=== PATIENT | male | born 1945 | race Caucasian/White ===

== ENCOUNTER 2021-05-28 22:03 | Emergency (ER) | payer MEDICARE, SELFPAY ==
[2021-05-28 22:04] VITALS: BP 115/60; PULSE 63; RESP 15; TEMP 36.4; O2SAT 97; BMI 25.1
--- NOTE | 2021-05-28 22:17 | EDS_ITS ---
HPI History of Present Illness Chief Complaint: Lower Extremity Injury Informant: patient Narrative Narrative: Patient is a 76 year male presenting with intermittent left thigh pain. It has been present for the past 2-3 days. Notes that it is intermittent and shooting. Worse when either sitting or laying. It is over the medial aspect of his thigh. Denies any recent medication changes. Denies any overlying rash or leg swelling. Denies history of DVT or PE. Is not any blood thinners. Did drive to and from [place] last month. Denies any shortness of breath or difficulty breathing. Denies associated back or leg pain. No numbness or tingling. No other complaints at this time. Denies any falls or injuries. [facility] Medical History Heart disease Home Medications aspirin 81 mg tablet,delayed release 81 mg PO DAILY 02/16/21 [History Last Taken Unknown] atorvastatin 80 mg tablet 80 mg PO DAILY 02/16/21 [History Last Taken Unknown] carvedilol 6.25 mg tablet 6.25 mg PO BID 02/16/21 [History Last Taken Unknown] cetirizine 10 mg capsule 10 mg PO DAILY 02/16/21 [History Last Taken Unknown] lansoprazole 30 mg capsule,delayed release 30 mg PO DAILY 02/16/21 [History Last Taken Unknown] sacubitril 97 mg-valsartan 103 mg tablet 1 tab PO BID 02/16/21 [History Last Valeriy en Unknown] sertraline 50 mg tablet 50 mg PO DAILY 02/16/21 [History Last Taken Unknown] spironolactone 25 mg tablet 25 mg PO DAILY 02/16/21 [History Last Taken Unknown] methylprednisolone [Medrol (Serafin)] 4 mg PO DAILY #21 tab 05/28/21 [Rx Last Taken Unknown] Allergy/AdvReac Type Severity Reaction Status Date / Time No Known Allergies Allergy Verified 05/28/21 22:04 Surgical History H/O heart bypass surgery Social History Smoking Status: Never smoker ROS ROS ED Constitutional Constitutional ED: Denies fever(s) or subjective ENT ENT ED: Denies rhinorrhea or sore throat Cardiovascular Cardiovascular: Denies chest pain, orthopnea or palpitations Respiratory/Chest Respiratory/Chest: Denies cough, dyspnea, dyspnea on exertion or orthopnea Gastrointestinal Gastrointestinal: Denies abdominal pain Genitourinary Genitourinary ED: Denies dysuria, hematuria or urinary frequency Musculoskeletal Musculoskeletal: Reports other Details: left thigh pain ; Denies arthralgias or myalgias Integumentary Denies Abrasions or rash Neurologic Neurologic: Denies headache(s), paresthesias or weakness Psychiatric Psychiatric: Denies anxiety or depression EXAM Physical Exam Const Vital Signs: 05/28/21 22:04 05/28/21 23:40 Temperature 97.6 F L Temperature Source Temporal Pulse Rate 63 Respiratory Rate 15 18 Blood Pressure 115/60 Blood Pressure Mean 78 Pulse Ox 97 Oxygen Delivery Method Room Air Positive well nourished and well developed General Appearance ED: well developed and NAD HEENT normocephalic and atraumatic Eyes PERRL Neck full ROM and supple Neck Narrative: No JVD Chest Wall inspection of chest normal Resp normal respiratory effort and clear to auscultation bilaterally Cardio regular rate, regular rhythm and no murmurs GI non-tender, non-distended and no masses Palpation: soft; Negative for guarding Back/Spine no CVA tenderness Lumbar Spine / Lower Back: straight leg raise negative bilaterally Extremity normal to inspection and full ROM Extremity Narrative: Normal range of motion of the left hip with logroll and full range of motion. Able to raise leg off the bed without any difficulty. 2+ popliteal and DP pulses on the right No palpable cords General Extremety ED: Negative for edema or weight-bearing difficulty General Extremity: Negative for edema or weight-bearing difficulty Neuro oriented x3, moves all extremities and no sensory deficits noted Sensorium / Orientation: alert Motor Exam: strength 5/5 throughout; Negative for general weakness Psych mental status grossly normal Skin Lesions: no lesions Rashes: no rashes MDM MDM MDM Narrative Medical decision making narrative: Patient evaluated for atraumatic left leg pain. Seems to be zings or shocks of pain in his medial left thigh. I suspect this is likely neuropathic pain. No overlying rash consistent with shingles. Patient is not had any trauma or injury concerning for fracture. I did obtain a venous duplex as patient recently drove to and from [place] to rule out DVT. This was negative for any acute DVT. Patient has normal strength and sensation in all dermatomes and equal distal pulses. Do not suspect any arterial occl usion. Patient will be started on a Medrol Dosepak as I suspect this is more of a radicular pain. He is agreeable with this. He is encouraged to follow-up with his primary care doctor. Patient is counseled on signs and symptoms requiring return to the emergency room. Patient verbalizes agreement and understand this plan. Patient discharged home in stable and improved condition. Radiography Diagnostic Testing: Clinical Impression(s) from Imaging Studies Venous Duplex 05/28/21 22:17 IMPRESSION: Normal left lower extremity duplex venous ultrasound. Electronically Signed: Amador Youngblood MD at 22:57 EDT , Discharge Plan Triage Chief Complaint: Lower Extremity Injury ED Provider: Britni Whittington Dx/Rx/DC Orders Clinical Impression: Acute pain of left thigh, Neuralgia of left thigh Instructions: Understanding Lumbar Radiculopathy Prescriptions: New methylprednisolone [Medrol (Serafin)] 4 mg tablets,dose pack 4 mg PO DAILY Qty: 21 RF: 0 No Action aspirin [Adult Aspirin Regimen] 81 mg tablet,delayed release (DR/EC) 81 mg PO DAILY RF: 0 atorvastatin 80 mg tablet 80 mg PO DAILY RF: 0 carvedilol [Coreg] 6.25 mg tablet 6.25 mg PO BID RF: 0 Zyrtec 10 mg capsule 10 mg PO DAILY RF: 0 lansoprazole 30 mg capsule,delayed release(DR/EC) 30 mg PO DAILY RF: 0 Entresto 97-103 mg tablet 1 tab PO BID RF: 0 sertraline 50 mg tablet 50 mg PO DAILY RF: 0 spironolactone 25 mg tablet 25 mg PO DAILY RF: 0 Primary Care Provider: Lopez Graham Referrals: Lopez Graham MD [Primary Care Provider] - Activity Restrictions/Additional Instructions: I suspect you have a nerve somewhere in your back or anterior leg that is been intermittently compressed and that is causing your pain. Please follow-up with your primary care doctor for further evaluation of this. You had a venous duplex scan that was negative for DVT today. Disposition Disposition: Home, Self Care Discharge Date/Time: 05/28/21 23:41
--- NOTE | 2021-05-28 22:17 | US_ITS ---
EXAM: US DUPLEX LEFT LOWER EXTREMITY VEINS CLINICAL INDICATION: INTERMITTENT LT MEDIAL THIGH PAIN TECHNIQUE: Real-time duplex ultrasound scan of the left lower extremity veins integrating B-mode two-dimensional vascular structure, Doppler spectral analysis, color flow Doppler imaging and compression. This report was created using [employer] technology. COMPARISON: None. FINDINGS: DEEP VEINS: Unremarkable. No DVT in the visualized common femoral, femoral, proximal deep femoral or popliteal veins. The veins demonstrate normal color flow, are normally compressible, with normal phasic flow and/or augmentation response. SUPERFICIAL VEINS: Unremarkable. No thrombus in the visualized great saphenous vein. SOFT TISSUES: No acute findings. No popliteal cyst. US/Venous Duplex Imag/Limited/Uni IMPRESSION: Normal left lower extremity duplex venous ultrasound. Electronically Signed: Amador Youngblood MD at 22:57 EDT ,
[2021-05-28] MEDS: Acetaminophen 325 MG Tablet 650 MG PO (23:29)
[2021-05-28 23:40] VITALS: RESP 18
== END 2021-05-28 23:41 | disposition home or self-care (01) ==
PROVIDERS: Emergency Provider Emergency Medicine; PCP Family Medicine; Visit Provider Emergency Medicine
DX: G57.92 Unspecified mononeuropathy of left lower limb (principal); I51.9 Heart disease, unspecified; Z79.82 Long term (current) use of aspirin; Z79.899 Other long term (current) drug therapy
CPT/HCPCS: 93971; 99283